=== PATIENT | female | born 1950 | race Caucasian/White ===

== ENCOUNTER → 2020-07-31 | Outpatient (CLI) | payer MEDICARE ==
--- NOTE | 2020-07-31 12:00 | Diagnostic Imaging Report ---
INDICATION: Chronic back pain. TIME OF EXAM: 11:31 AM. COMPARISON: No prior studies are available for comparison. FINDINGS: The curvature and alignment of the thoracic spine appear normal. There are compression deformities involving approximately the T8, T10, and T12 vertebral bodies, age indeterminate. No definite retropulsion is seen. The pedicles and paraspinous line are intact. There is generalized demineralization. IMPRESSION: Age indeterminate mid and lower thoracic compression fractures. MRI would be useful for further evaluation if there is concern for acuity. Dictated by: Dictated on workstation # [id number]
--- NOTE | 2020-07-31 12:03 | Diagnostic Imaging Report ---
INDICATION: Chronic back pain. TIME OF EXAM: 11:32 AM. COMPARISON: No prior studies are available for comparison. FINDINGS: The curvature and alignment are normal. Marked demineralization is noted. There is a significant compression fracture deformity involving the L3 vertebral body, age indeterminate. No retropulsion is seen. The remaining lumbar vertebrae show normal stature. The disc spaces are maintained. IMPRESSION: Age-indeterminate L3 compression fracture. MRI could be performed to evaluate acuity, if clinically indicated. Dictated by: Dictated on workstation # [id number]
== END ==
LOC: RAD FS 11:17
PROVIDERS: ATTEND Nurse Practitioner Family
DX: M48.56XA Collapsed vertebra, not elsewhere classified, lumbar region, initial encounter for fracture (principal); M48.54XA Collapsed vertebra, not elsewhere classified, thoracic region, initial encounter for fracture
CPT/HCPCS: 72070; 72100

== ENCOUNTER → 2020-08-10 | Outpatient (CLI) | payer MEDICARE ==
--- NOTE | 2020-08-10 16:12 | Diagnostic Imaging Report ---
INDICATION: Low back pain and osteoporosis. History of spinal fractures in the past. Recent radiographs demonstrate a questioned new fracture. EXAMINATION: Lumbar spine MRI without contrast on 08/10/2020. COMPARISON: Correlation is made to radiographs dated 07/31/2020. FINDINGS: There are no significant subluxations. There is a compression deformity at L3 with minimal T2 hyperintensity throughout the superior endplate suggesting perhaps a subacute process. Minimal retropulsion of the posterior wall of the vertebral body is seen into the canal with secondary moderate central stenosis. There is loss of height at T12 which appears chronic. A compression fracture is also noted at T10 which contains diffuse abnormal signal intensity suggesting an acute fracture. The marked T1 hypointensity on T1-weighted imaging is likely due to the edema; however, a pathologic fracture is difficult to exclude and dedicated thoracic spine imaging may provide further characterization. The adjacent cord demonstrates normal signal intensity with no significant central stenosis at this level. L1-L2: There is disc desiccation with minimal broad-based bulging disc material. There is bilateral facet hypertrophy. No central stenosis is appreciated. There is moderate bilateral neuroforaminal narrowing, right worse than left. L2-L3: There is disc desiccation with bilateral facet and ligamentum flavum hypertrophy. No central stenosis is appreciated. Mild to moderate bilateral neuroforaminal narrowing is seen. L3-L4: There is disc desiccation with minimal broad-based bulging disc material. Bilateral facet and ligamentum flavum hypertrophy is seen with no central stenosis. There is moderate bilateral neuroforaminal narrowing. L4-L5: There is disc desiccation. Very minimal broad-based bulging disc material flattens the ventral thecal sac without central stenosis. There is mild bilateral facet hypertrophy. There is moderate neuroforaminal stenosis on the right with mild narrowing on the left. L5-S1: There is a very small right paracentral bulging disc flattening the ventral thecal sac. There is bilateral facet hypertrophy with no central stenosis. The neural foramina appear patent. 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 The visualized intra-abdominal structures are unremarkable for acute abnormality. An incompletely evaluated lesion is seen within the right lobe of the liver posteriorly. Dedicated CT imaging with and without contrast using liver protocol could provide better characterization. IMPRESSION: Multilevel diffuse degenerative disease as above with a compression fracture at L3 (likely subacute) and a poorly characterized fracture at T10 (acute to subacute in nature), see above description and recommendations. A chronic compression fracture of T12 is also noted. Other findings as above. Dictated by: Dictated on workstation # [id number]
== END ==
LOC: RAD 15:30
PROVIDERS: ATTEND Nurse Practitioner Family
DX: S32.030A Wedge compression fracture of third lumbar vertebra, initial encounter for closed fracture (principal); S22.080A Wedge compression fracture of T11-T12 vertebra, initial encounter for closed fracture; M47.816 Spondylosis without myelopathy or radiculopathy, lumbar region; M47.817 Spondylosis without myelopathy or radiculopathy, lumbosacral region; M51.26 Other intervertebral disc displacement, lumbar region; M51.37 Other intervertebral disc degeneration, lumbosacral region; M51.36 Other intervertebral disc degeneration, lumbar region; M48.061 Spinal stenosis, lumbar region without neurogenic claudication; K76.9 Liver disease, unspecified; Z87.81 Personal history of (healed) traumatic fracture; X58.XXXA Exposure to other specified factors, initial encounter
CPT/HCPCS: 72148

== ENCOUNTER → 2020-11-07 | Outpatient (CLI) | payer MEDICARE ==
--- NOTE | 2020-11-07 16:09 | Diagnostic Imaging Report ---
INDICATION: Postmenopausal screening COMPARISON: Baseline FINDINGS: AP Spine L1-L4: [BMD (g/cm2): 0.365] [T-Score: -7.0] [Z-Score: -4.6] [BMD Previous: na] [BMD % Change: na] LT Hip Neck: [BMD (g/cm2): 0.457] [T-Score: -4.2] [Z-Score: -2.0] LT Hip Total: [BMD (g/cm2):0.478] [T-Score:-4.2] [Z-Score: -2.2] [BMD Previous: na] [BMD % Change: na] RT Hip Neck: [BMD (g/cm2):0.488] [T-Score:-4.0] [Z-Score:-1.8] RT Hip Total: [BMD (g/cm2):0.483] [T-score:-4.2] [Z-Score:-2.2] [BMD Previous:na] [BMD % Change:na] *Indicates significant change from prior examination based on 95% confidence level. World Health Organization criteria for BMD interpretation classify patients as Normal (T-score at or above -1.0), Osteopenic (T-score between -1.0 and -2.5) or Osteoporotic (T-score at or below -2.5). LIMITATIONS AND MODIFICATION: None. FRACTURE RISK (FRAX SCORE): The ten year probability of (%): Major Osteoporotic Fracture: [na] Hip Fracture: [na] IMPRESSION: 1. Osteoporosis. 2. Baseline examination. 3. See below National Osteoporosis Foundation guidelines on when to potentially initiate pharmacologic therapy. Based on the National Osteoporosis Foundation Guidelines, pharmacologic treatment should be initiated in any of the following, unless clinical conditions suggest otherwise: * Any patient with prior fragility fracture of the hip or vertebrae. A spine fracture indicates 5X risk for subsequent spine fracture and 2X risk for subsequent hip fracture. * Osteoporosis (T-score <-2.5). * Postmenopausal women and men age 50 and older with low bone mass/osteopenia (T-score between -1.0 and -2.5) by DXA and 10-year major osteoporotic fracture greater than 20% or a 10-year probability of hip fracture greater than 3%. These fracture risks are supplied above in the FRAX score, if applicable. * Clinician judgement and/or patient preferences may indicate treatment for people with 10-year fracture probabilities above or below these levels. Dictated by: Dictated on workstation # [id number]
== END ==
LOC: RAD 13:24
PROVIDERS: ATTEND Nurse Practitioner Family
DX: M81.0 Age-related osteoporosis without current pathological fracture (principal)
CPT/HCPCS: 77080

== ENCOUNTER → 2021-08-16 | Outpatient (CLI) | payer MEDICARE ==
[~2021-08-16] VITALS: Ht 152 cm; Wt 41.0 kg
[~2021-08-16] MED LIST: CATHETER FLUSH 10 ML SYR IV PRN
[2021-08-16 12:49] VITALS: BP 155/85
--- NOTE | 2021-08-17 08:45 | NUCLEAR STRESS TEST ---
TREADMILL NUCLEAR STRESS TEST Date of procedure: 08/16/2021. Primary care provider: Dominique Anderson APRN. Admitting physician: Aaron Chavarria Jr., MD. INDICATION: Abnormal electrocardiogram. BASELINE ELECTROCARDIOGRAM: Sinus rhythm with possible old septal myocardial infarction. STRESS TEST PROCEDURE: The patient was exercised for a total of 4 minutes and 30 seconds of the standard Gurmeet protocol achieving a maximum MET level of 6.4. The resting heart rate was 62 bpm and the peak heart rate was 133 bpm, which represents 88% of the maximum predicted heart rate. The resting blood pressure was 151/82 mmHg and the peak blood pressure was 164/91 mmHg. This represents a normal heart rate and a blunted blood pressure response to exercise. The test was stopped due to fatigue. There was no chest discomfort during the test. There were isolated premature supraventricular complexes during the test. There were borderline stress induced electrocardiogram changes with approximately [address] depression in the inferior leads that resolved in recovery. The patient exhibited good exercise capacity for age. NUCLEAR PROCEDURE: The patient was administered 10.4 mCi of intravenous technetium 99m Tetrofosmin at rest for the rest images. The patient was subsequently administered 29.7 mCi of intravenous technetium 99 M Tetrofosmin at peak stress for the stress images. Following an appropriate wait after each injection, imaging was obtained. The images were subsequently processed and r eformatted in the usual views. Gated imaging was obtained. The image quality was adequate with a mild degree of gastrointestinal attenuation artifact. CT attenuation correction was used as a adjunct to standard imaging. Both the corrected and uncorrected images were reviewed for interpretation. NUCLEAR RESULTS: There was normal myocardial perfusion in all segments without evidence of infarction or ischemia. There was normal left ventricular chamber size with an end-diastolic volume of 48 mL and an end-systolic volume of 17 mL. There was no evidence of transient ischemic dilatation. The TID ratio was 0.79. There was normal wall motion in all segments with a calculated ejection fraction of 65%. IMPRESSION: 1. Normal heart rate and a blunted blood pressure response to exercise. 2. There was no chest discomfort during the test. 3. There were isolated premature supraventricular complexes during exercise. 4. There were borderline exercise-induced electrocardiogram changes that improved in recovery. 5. The patient exhibited good exercise capacity for age at 4 minutes and 30 seconds of the Gurmeet protocol. 6. There was normal myocardial perfusion in all segments without evidence of infarction or ischemia. 7. There was normal wall motion in all segments with a calculated ejection fraction of 65%. Certain portions of this document may have been dictated utilizing voice recognition technology. Inherent to this technology, typographical and grammatical errors may exist. As much as I am diligent to identify and correct these mistakes, some errors may remain in the document. AARON CHAVARRIA JR, MD Aug 17, 2021 08:45
== END ==
LOC: CARD 10:15
PROVIDERS: ATTEND Internal Medicine Cardiovascular Disease
DX: I36.1 Nonrheumatic tricuspid (valve) insufficiency (principal)
CPT/HCPCS: 78452; 93017; 93306; A9502

== ENCOUNTER → 2022-05-02 | Outpatient (CLI) | payer MEDICARE ==
[~2022-05-02] MED LIST changes: +HOLD METFORMIN - RECEIVED CONTRAST 20 ML VIAL IV SCH; +IOHEXOL 350 MG/ML 100 ML (OMNIPAQUE 350) VIAL IV ONE; +NS 100 ML (IVPB) BAG IV ONE
[2022-05-02 09:16] LABS: CREATININE SERUM 0.6 MG/DL (0.60-1.30)
--- NOTE | 2022-05-02 14:32 | Diagnostic Imaging Report ---
PROCEDURE: CT of the chest and pelvis with contrast and CT of the abdomen with and without contrast. TECHNIQUE: Precontrast acquisitions were acquired through the abdomen. Multiple contiguous axial images were obtained through the chest, abdomen and pelvis after administration of intravenous contrast. Auto Exposure Controls were utilized during the CT exam to meet ALARA standards for radiation dose reduction. INDICATION: Right groin mass, inguinal hernia repairs, previous cholecystectomy. COMPARISON: I have no relevant comparison. CHEST: The lungs are hyperexpanded with centrilobular emphysematous changes and some biapical pleural-parenchymal scarring. No suspicious lung mass or worrisome pulmonary nodule. There is no axillary or mediastinal adenopathy. There is some biapical pleural-parenchymal scarring. Atherosclerotic aorta patent, nonaneurysmal and appeared nonacute. There is no pleural or pericardial effusion. ABDOMEN PELVIS: There is a right lobe liver mass with enhancement pattern felt to confirm benign cavernous hemangioma of 3 cm diameter. There is a left lobe nodule low in density without obvious enhancement, probably a cyst measuring 1.4 cm. No suspicious solid appearing liver mass. There is no pathological biliary dilatation postcholecystectomy. The spleen normal in size. The adrenals negative. Pancreas unremarkable. There is no hydroureteronephrosis. There is a subcutaneous fluid collection with an imperceptible wall and no internal gas or perilesional complexity in the right groin well medial to the neurovascular bundle with a diameter of 2 cm, this presumed postoperative residual fluid collection. No herniation of viscus. There is no abdominal pelvic small or large bowel obstruction. No ascites. No free fluid. There are degenerative changes to the bony structures. No acute osseous pathology. IMPRESSION: 1. Chest shows extensive COPD with no evidence of neoplasm or pneumonia. 2. Abdomen shows right lobe cavernous hemangioma and a probable cyst in the left hepatic lobe. 3. Pelvis shows right groin fluid collection showing no complexity, likely a residual postsurgical collection. No evidence for recurrent hernia or obstructive features. Dictated by: Dictated on workstation # [id number]
== END ==
LOC: LAB FS 08:28
PROVIDERS: ATTEND Surgery
DX: R19.09 Other intra-abdominal and pelvic swelling, mass and lump (principal)
CPT/HCPCS: 36415; 71260; 74178; 82565; 84520; Q9967

== ENCOUNTER → 2022-08-20 | Outpatient (CLI) | payer MEDICARE | LOC: CARDFS 13:44 | PROVIDERS: ATTEND Internal Medicine Cardiovascular Disease | DX: I07.1 Rheumatic tricuspid insufficiency (principal) | CPT/HCPCS: 93306 ==